=== PATIENT | female | born 1945 | race Caucasian/White ===

== ENCOUNTER 2019-04-29 13:30 | Outpatient (CLI) | payer MEDICARE | END 2019-04-29 14:00 | disposition home or self-care (01) | LOC: D.MAMMO 13:30 | PROVIDERS: ATTEND Family Medicine | DX: Z12.31 Encounter for screening mammogram for malignant neoplasm of breast (principal) ==

== ENCOUNTER 2019-06-19 20:30 | Emergency (ER) | payer MEDICARE ==
[~2019-06-19] VITALS: Ht 167.6 cm; Wt 86.4 kg
[2019-06-19 20:37] VITALS: Ht 167.6 cm; Wt 86.4 kg
[2019-06-19] MEDS ORDERED: OXYBUTYNIN CHLOR5 MG PO (20:39)
[2019-06-19] MEDS ORDERED: COZAAR50 MG PO (20:39)
[2019-06-19] MEDS ORDERED: CITRACAL + D E1 EACH PO (20:39)
[2019-06-19] MEDS ORDERED: ESTRACE 0.0142.5 GM (20:40)
[2019-06-19] MEDS ORDERED: TOPROL XL50 MG PO (20:40)
[2019-06-19] MEDS ORDERED: CRESTOR5 MG PO (20:40)
[2019-06-19] MEDS ORDERED: CATAPRES0.1 MG PO (20:58)
[2019-06-19 21:30] VITALS: BP 168/102
== END 2019-06-19 21:26 | disposition home or self-care (01) ==
LOC: D.ER 20:30
DX: I10 Essential (primary) hypertension (principal)

== ENCOUNTER → 2020-02-23 12:12 | Outpatient (CLI) | payer MEDICARE ==
[2019-06-19 20:37] VITALS: BMI 30.7
[~2020-02-23 12:12] MED LIST: CATAPRES0.1 MG PO; CITRACAL + D E1 EACH PO; COZAAR50 MG PO; CRESTOR5 MG PO; ESTRACE 0.0142.5 GM; OXYBUTYNIN CHLOR5 MG PO; TOPROL XL50 MG PO
== END | disposition home or self-care (01) ==
LOC: D.RAD 12:12
PROVIDERS: ATTEND Family Medicine
DX: M54.5 Low back pain (principal)

== ENCOUNTER 2020-11-07 23:22 | Emergency (ER) | payer MEDICARE ==
[~2020-11-07] VITALS: Ht 167.6 cm; Wt 80.0 kg
[2020-11-07 23:29] VITALS: Ht 167.6 cm; Wt 80.0 kg
[2020-11-07] MEDS ORDERED: DITROPAN XL 1010 MG PO (23:32)
[2020-11-07] MEDS ORDERED: CO Q-10100 MG PO (23:33)
[2020-11-07] MEDS ORDERED: FISH OIL 1,0001 CA1 PO (23:34)
[2020-11-07] MEDS ORDERED: NORVASC10 MG PO (23:34)
[2020-11-07] MEDS ORDERED: XANAX0.5 MG PO (23:37)
[2020-11-08] MEDS ORDERED: LASIX20 MG PO (00:09)
[2020-11-08 00:25] LABS: BASOPHILS 0.6 % (0-2); EOSINOPHILS 2.7 % (0-7); HEMATOCRIT 40.8 % (36.0-48.0); HEMOGLOBIN 13.7 g/dL (12-16); IMMATURE GRANULOCYTES 0.2 % (0-5); LYMPHOCYTE ABS# 1.88 10x3/uL (1.18-3.74); LYMPHOCYTES 30.3 % (15-50); MCH 29.9 pg (26.0-34.0); MCHC 33.6 g/dL (31.0-37.0); MCV 89.1 fL (80.0-100.0); MEAN PLATELET VOLUME 9.9 fL (7.4-10.4); MONOCYTES 8.7 % (2-11); NEUTROPHIL ABS# 3.57 10x3/uL (1.56-6.13); NEUTROPHILS 57.5 % (40-80); PLATELET COUNT 182 10x3/uL (130-400); RBC 4.58 10x6/uL (4.00-5.40); RDW 12.2 % (11.5-14.5); WBC 6.2 10x3/uL (4.8-10.8)
[2020-11-08 00:31] LABS: ANION GAP 13.1 mmol/L (8-16); CALCIUM 9.1 mg/dL (8.5-10.1); CARBON DIOXIDE 25.2 mmol/L (21.0-32.0); CREATININE - SERUM 1.3 mg/dL (0.6-1.3); POTASSIUM - SERUM 4.3 mmol/L (3.5-5.1)
[2020-11-08 00:45] LABS: ALBUMIN 4.1 g/dL (3.4-5.0); BILIRUBIN - TOTAL 0.51 mg/dL (0.2-1.3); PROTEIN - SERUM 7.3 g/dL (6.4-8.2)
[2020-11-08 00:49] LABS: BILIRUBIN NEGATIVE (NEGATIVE); KETONE NEGATIVE (NEGATIVE); NITRITE NEGATIVE (NEGATIVE); UROBILINOGEN NORMAL mg/dL (< 2)
[2020-11-08 00:50] LABS: SQUAMOUS EPITHELIAL 0-5 HPF (0-4)
[2020-11-08 00:51] LABS: BACTERIA MANY HPF (NONE SEEN)
[2020-11-08 01:05] VITALS: BP 141/58
== END 2020-11-08 01:05 | disposition home or self-care (01) ==
LOC: D.ER 23:22
PROVIDERS: Emergency Medicine
DX: R60.9 Edema, unspecified (principal); I10 Essential (primary) hypertension; E78.5 Hyperlipidemia, unspecified